=== PATIENT | female | born 1995 | race Caucasian/White ===

== ENCOUNTER 2017-02-07 15:06 | Emergency (ER) | payer OTHER ==
[~2017-02-07] VITALS: Ht 165.1 cm; Wt 91.3 kg
[2017-02-07] MEDS ORDERED: LIDOCAINE W/EPINEPHRINE 1% 20ML VIAL SC ONE (16:45)
[2017-02-07] MEDS ORDERED: AMOX875T PO (17:15)
[2017-02-07] MEDS ORDERED: ACETAMINOPHEN 325 MG TAB PO ONE (17:15)
[2017-02-07 17:20] VITALS: BP 126/70
== END 2017-02-07 17:27 | disposition home or self-care (01) ==
LOC: M ED 15:06
DX: O26.892 Other specified pregnancy related conditions, second trimester (principal); N76.4 Abscess of vulva; Z3A.24 24 weeks gestation of pregnancy

== ENCOUNTER 2017-05-26 18:25 | Outpatient (CLI) | payer OTHER | END 2017-05-26 19:30 | disposition home or self-care (01) | LOC: M LDO 18:25 | DX: O47.1 False labor at or after 37 completed weeks of gestation (principal); Z3A.39 39 weeks gestation of pregnancy | CPT/HCPCS: 59025 ==

== ENCOUNTER 2017-05-27 11:55 | Outpatient (CLI) | payer OTHER ==
[2017-05-27] MEDS: PROMETHAZINE 25 MG TAB PO (13:34)
== END 2017-05-27 13:55 | disposition home or self-care (01) ==
LOC: M LDO 11:55
DX: O47.1 False labor at or after 37 completed weeks of gestation (principal); Z3A.39 39 weeks gestation of pregnancy
CPT/HCPCS: 59025

== ENCOUNTER 2017-05-27 20:33 | Inpatient (IN) | payer OTHER ==
[2017-05-27 22:19] LABS: HEMATOCRIT 37.7 % (36.0-47.0); HEMOGLOBIN 12.8 g/dl (12.0-16.0); MEAN CORPUSCULAR HEMOGLOBIN 27.8 pg (27.0-33.0); MEAN CORPUSCULAR VOLUME 81.8 fl (80.0-96.0); PLATELET COUNT, AUTOMATED 166 10^3/uL (150-450); RED BLOOD COUNT 4.61 10^6/uL (4.00-5.40); RED CELL DISTRIBUTION WIDTH 14.4 % (11.5-14.5); WHITE BLOOD COUNT 21.7 10^3/uL (4.0-10.0)
[2017-05-27] MEDS ORDERED: FENTANYL 2MCG/ML ROPIVACAINE 0.2% IN 0.9% NACL 200ML IVBAG As Ordered (23:07)
[2017-05-28] MEDS ORDERED: OXYTOCIN 30 UNITS IN 0.9% NaCl 500ML IV BAG (J2590) As Ordered (03:41)
[2017-05-28 07:35] LABS: CORD GAS HCO3 A 13.4 MEQ/L; CORD GAS O2 SAT A 71.4 %; CORD GAS PCO2 A 33.4 mmHg; CORD GAS PO2 A 34.9 mmHg; CORD GAS SBC A 14.2 MEQ/L; CORD GAS TCO2 A 14.4 MEQ/L
[2017-05-28 07:37] LABS: CORD GAS ABE V -12.7; CORD GAS HCO3 V 13.7 MEQ/L; CORD GAS O2 SAT V 66.3 %; CORD GAS PCO2 V 34.2 mmHg; CORD GAS PH V 7.221 UNITS; CORD GAS PO2 V 32.2 mmHg; CORD GAS SBC V 14.3 MEQ/L; CORD GAS TCO2 V 14.8 MEQ/L
[2017-05-28] MEDS ORDERED: MOM 30ML SUSPENSION UDC PO (08:15)
[2017-05-28] MEDS ORDERED: ACETAMINOPHEN 500 MG TAB PO (08:15)
[2017-05-28] MEDS ORDERED: ANUSOL HC CREAM 30GM TOP (08:15)
[2017-05-28] MEDS ORDERED: RHOGAM 300 MCG (1500 IU) INJ (J2790) IM (08:15)
[2017-05-28] MEDS ORDERED: DIBUCAINE 1% OINTMENT 30GM TOP (08:15)
[2017-05-28] MEDS ORDERED: METHYLERGONOVINE MALEATE 0.2 MG TAB PO (08:15)
[2017-05-28] MEDS ORDERED: MEASLES,MUMPS,RUBELLA VACCINE INJ (MMR-II) (90707) SC (08:15)
[2017-05-28] MEDS: LIDOCAINE 1% MDV 20ML VIAL INFIL (10:15)
[2017-05-28] MEDS: OXYTOCIN DRIP 30 UNITS in APPROPRIATE DILUENT 1 EA IV (10:15)
[2017-05-28] MEDS: LR 1,000 ML IV (10:15)
[2017-05-28] MEDS: PRENATAL VITAMINS CHEWABLE TABLET PO (10:25)
[2017-05-29] MEDS: PRENATAL VITAMINS CHEWABLE TABLET PO (08:26)
[2017-05-29] MEDS: IBUPROFEN 800 MG TAB PO ×2 (08:28→23:08)
[2017-05-29] MEDS: DOCUSATE SODIUM 100 MG CAP PO (23:07)
[2017-05-30] MEDS: PRENATAL VITAMINS CHEWABLE TABLET PO (07:58)
[2017-05-30] MEDS: IBUPROFEN 800 MG TAB PO (07:58)
== END 2017-05-30 13:10 | disposition home or self-care (01) | DRG 775 ==
LOC: M LDO 20:33 → M LDI 23:15 → M OBS 05-28 09:56
PROVIDERS: Obstetrics & Gynecology
PROC: 10D07Z6 Extraction of Products of Conception, Vacuum, Via Natural or Artificial Opening (ICD-10-PCS; principal; 2017-05-28)
PROC: 0HQ9XZZ Repair Perineum Skin, External Approach (ICD-10-PCS; 2017-05-28)
DX: O75.81 Maternal exhaustion complicating labor and delivery (principal); Z37.0 Single live birth; Z3A.39 39 weeks gestation of pregnancy; O70.0 First degree perineal laceration during delivery